=== PATIENT | male | born 1955 | race Hispanic/Latino ===

== ENCOUNTER → 2020-01-16 | Outpatient (CLI) | payer BC ==
[~2020-01-16] MED LIST: FLOMAX0.4 MG PO; SUPER B WITH V1 EACH PO
--- NOTE | 2020-01-16 13:49 | Diagnostic Imaging Report ---
EXAM: Renal Ultrasound INDICATION: ^[id number] ^[id number] ^MICROSCOPIC HEMATURIA /UTI COMPARISON: None TECHNIQUE: Transverse and longitudinal images of the kidneys and bladder were obtained. FINDINGS: Right Kidney: Length: 9.5 cm Appearance: Normal echogenicity. Collecting system: No hydronephrosis Stones: None Cyst/Mass: None Left Kidney: Length: 9.6 cm Appearance: Normal echogenicity. Collecting system: No hydronephrosis Stones: None Cyst/Mass: None Bladder: The bladder measures 5.2 x 3.6 x 4.8 cm. No mass or calculi. Bilateral ureteral jets visualized. Prevoid volume estimate of 47 cc. The prostate measures 3.9 x 2.0 x 3.6 cm with volume estimate of 15 cc. IMPRESSION: No renal calculi or hydronephrosis. Signed by: Cortez Franklin MD on 01/16/2020 1:47 PM
== END ==
LOC: US 12:43
PROVIDERS: ATTEND Urology
DX: R31.9 Hematuria, unspecified (principal); N39.0 Urinary tract infection, site not specified
CPT/HCPCS: 76770